=== PATIENT | female | born 1950 | race Caucasian/White ===

== ENCOUNTER → 2018-02-05 10:10 | Outpatient (POV) | payer BC, MEDICARE, SELFPAY | PROVIDERS: Family Provider Internal Medicine Adolescent Medicine; Visit Provider Physician Assistant | DX: Z00.00 Encounter for general adult medical examination without abnormal findings (principal) ==

== ENCOUNTER → 2019-07-26 08:42 | Outpatient (CLI) | payer BC, MEDICARE, SELFPAY ==
[2019-07-26 17:18] LABS: Hemoglobin A1C 7.2 % (0.0-7.0)
== END ==
PROVIDERS: Visit Provider Internal Medicine Adolescent Medicine
DX: R73.9 Hyperglycemia, unspecified (principal)
CPT/HCPCS: 36415; 83036

== ENCOUNTER 2019-10-07 14:30 | Outpatient (RCR) | payer BC, MEDICARE, SELFPAY ==
--- NOTE | 2019-09-12 16:59 | HMH.PTOPEV ---
PT Outpatient Evaluation Rehab PT Outpatient Evaluation Start: 09/12/19 14:56 Freq: Status: Active Protocol: Document 09/12/19 15:47 [email or web address] (Rec: 09/12/19 16:59 [email or web address] [id number]) Electronically Signed By Trino Gao, SAL 09/12/19 15:47 Outpatient Therapy Subjective History Subjective History Pt. is a 69 year old female who presents to Outpatient PT clinic with reports of subacute and activity dependent L thoracic P! of insidious onset 3 months ago. Pt. reports worsening of symptoms during ambulation/ standing for long periods of time, and sitting down/ bending down touching toes provide symptom relief. Pt. reports similar symptoms in fall of 2018 that relieved on their own. Pt. denies having injections and diagnostic imaging for current pathology. Current medications include a muscle relaxer(pt. unable to recall name at this time), Metformin, Lisinopril, Levothyroxine, Carvedilol, and Rosuvastatin. PMH includes HTN, Hypercholesterolemia, and Type II diabetes. Chief Complaint Pain Symptom Type Ache Symptoms Relieved By Rest/Positioning,Brace/Support Symptoms Aggravated By Standing,Physical Activity, Walking Prior Functional Limitations None Current Functional Limitations Housework,Standing,Walking Symptom Description Activity Dependent Level of pain today (0-10) 0 Pain scale - at its best (0-10) 0 Pain scale - at its worst (0-10) 10 Shoulder/Elbow Eval Shoulder Objective Measurements Palpation Tenderness Shoulder Palpation Overall Comment grade 2 +TTP to L low trap/ rhomboid major Posture Shoulder Posture Sitting Position (L) Rounded,(R) Rounded Shoulder Posture Standing Position (L) Rounded,(R) Rounded Flexibilty Deficits Latissmus Dorsi Muscle Length (R) Moderate Tightness,(L) Moderate Tightness Pectoralis Minor Muscle Length (R) Moderate Tightness,(L) Moderate Tightness Shoulder ROM Bilateral full ROM shoulder exam standard bilateral Shoulder MMT Left Lower Trapezius Strength Grade
== END 2019-10-14 13:41 | disposition home or self-care (01) ==
LOC: PT.CARL 14:30
PROVIDERS: PCP Internal Medicine Adolescent Medicine; Visit Provider Internal Medicine Adolescent Medicine
DX: S39.012A Strain of muscle, fascia and tendon of lower back, initial encounter (principal)
CPT/HCPCS: 97033; 97110; 97140; 97163

== ENCOUNTER → 2021-05-25 09:45 | Outpatient (CLI) | payer BC, MEDICARE, SELFPAY ==
[2021-05-26 09:15] LABS: Basophils % 0.6 % (0.1-2.0); Eosinophils # 0.1 K/mm3 (0.0-0.4); Eosinophils % 1.6 % (0.1-12.0); Hematocrit 46.9 % (37.0-47.0); Lymphocytes % 17.7 % (10-50); Mean Corpuscular HGB Conc 31.9 g/dL (31.8-35.4); Mean Corpuscular Hemoglobin 31.3 pg (27.0-31.2); Mean Corpuscular Volume 98.2 fl (81-99); Mean Platelet Volume 9.9 fl (7.4-10.4); Monocytes # 0.2 K/mm3 (0.1-1.0); Monocytes % 3.7 % (1.7-9.3); Neutrophils # 4.2 K/mm3 (1.8-7.8); Neutrophils % 76.3 % (37.0-80.0); Platelet Count 263 K/mm3 (142-424); Red Blood Count 4.78 M/mm3 (4.20-5.40); Red Cell Distribution Width 12.9 % (11.5-17.5); White Blood Count 5.6 K/mm3 (4.8-10.8)
[2021-05-26 10:05] LABS: Hemoglobin A1C 4.9 % (4.0-6.0)
[2021-05-26 10:12] LABS: Chloride 104 mmol/L (98-107)
[2021-05-26 10:13] LABS: Potassium 4.7 mmoL/L (3.5-5.1); Sodium 141 mmol/L (136-145)
[2021-05-26 10:15] LABS: Alanine Aminotransferase 25 U/L (12-78); Alkaline Phosphatase 90 U/L (38-126); Anion Gap 16.7 mEq/L (5-15); Aspartate Amino Transferase 34 U/L (14-36); Bilirubin,Total 0.8 mg/dl (0.2-1.3); Blood Urea Nitrogen 16 mg/dl (7-17); Carbon Dioxide 25 mmol/L (22.0-30.0); Cholesterol 143 mg/dl (140-200); Estimated Glomerular Filt Rate 62 ml/min (>60); GFR (African American) 74 ML/MIN (>60); Triglycerides 111 mg/dl (30-150); VLDL Cholesterol 22 mg/dL (0-40)
[2021-05-26 10:16] LABS: Albumin Level 4.6 g/dl (3.5-5.0); Albumin/Globulin Ratio 1.4 (1.1-1.8); Calcium 9.6 mg/dl (8.4-10.2); Chol/HDL Ratio 3.3 (1-3.5); Globulin 3.2 g/dL (1.3-3.2); Glucose 114 mg/dl (74-100); HDL Cholesterol 43 mg/dl (40-60); Total Protein,Serum 7.8 g/dl (6.3-8.2)
[2021-05-26 10:27] LABS: Direct LDL Cholesterol 71.74 mg/dL (100-129)
[2021-05-26 10:47] LABS: Thyroid Stimulating Hormone 1.64 uIU/mL (0.465-4.68)
== END ==
PROVIDERS: Visit Provider Internal Medicine Adolescent Medicine
DX: E11.9 Type 2 diabetes mellitus without complications (principal); E03.9 Hypothyroidism, unspecified
CPT/HCPCS: 80053; 80061; 83036; 84443; 85025

== ENCOUNTER → 2021-12-02 06:00 | Outpatient (CLI) | payer BC, MEDICARE, SELFPAY ==
[2021-12-02 14:20] LABS: Alanine Aminotransferase 30 U/L (12-78); Albumin Level 4.5 g/dl (3.5-5.0); Albumin/Globulin Ratio 1.7 (1.1-1.8); Alkaline Phosphatase 74 U/L (38-126); Anion Gap 12.4 mEq/L (5-15); Aspartate Amino Transferase 35 U/L (14-36); Bilirubin,Total 0.7 mg/dl (0.2-1.3); Blood Urea Nitrogen 21 mg/dl (7-17); Calcium 9.6 mg/dl (8.4-10.2); Carbon Dioxide 26 mmol/L (22.0-30.0); Chloride 104 mmol/L (98-107); Cholesterol 126 mg/dl (140-200); Estimated Glomerular Filt Rate 54 ml/min (>60); GFR (African American) 66 ML/MIN (>60); Globulin 2.7 g/dL (1.3-3.2); Glucose 107 mg/dl (74-100); HDL Cholesterol 42 mg/dl (40-60); Potassium 4.4 mmoL/L (3.5-5.1); Sodium 138 mmol/L (136-145); Total Protein,Serum 7.2 g/dl (6.3-8.2); Triglycerides 95 mg/dl (30-150); VLDL Cholesterol 19 mg/dL (0-40)
[2021-12-02 14:32] LABS: Basophils # 0.1 K/mm3 (0-0.2); Basophils % 1.5 % (0.1-2.0); Direct LDL Cholesterol 54.61 mg/dL (100-129); Eosinophils # 0.1 K/mm3 (0.0-0.4); Eosinophils % 1.9 % (0.1-12.0); Hematocrit 41.4 % (37.0-47.0); Hemoglobin 13.9 g/dL (12.2-16.2); Lymphocytes # 1.2 K/mm3 (0.7-4.5); Lymphocytes % 22.9 % (10-50); Mean Corpuscular HGB Conc 33.7 g/dL (31.8-35.4); Mean Corpuscular Hemoglobin 31.6 pg (27.0-31.2); Mean Corpuscular Volume 93.9 fl (81-99); Mean Platelet Volume 10.7 fl (7.4-10.4); Monocytes # 0.3 K/mm3 (0.1-1.0); Monocytes % 6.1 % (1.7-9.3); Neutrophils # 3.5 K/mm3 (1.8-7.8); Neutrophils % 67.5 % (37.0-80.0); Platelet Count 278 K/mm3 (142-424); Red Blood Count 4.41 M/mm3 (4.20-5.40); Red Cell Distribution Width 13.1 % (11.5-17.5); White Blood Count 5.2 K/mm3 (4.8-10.8)
[2021-12-02 14:51] LABS: Thyroid Stimulating Hormone 3.38 uIU/mL (0.465-4.68)
[2021-12-02 15:24] LABS: Hemoglobin A1C 5.1 % (4.0-6.0)
== END ==
PROVIDERS: Visit Provider Internal Medicine Adolescent Medicine
DX: E03.9 Hypothyroidism, unspecified (principal); E78.2 Mixed hyperlipidemia; E11.9 Type 2 diabetes mellitus without complications
CPT/HCPCS: 36415; 80053; 80061; 83036; 84443; 85025

== ENCOUNTER 2024-07-07 09:31 | Emergency (ER) | payer MEDICARE, SELFPAY ==
--- NOTE | 2024-07-07 10:41 | EXP.UTC ---
Discharge Plan Disposition Patient Disposition: Home, Self-Care Condition: Good Prescriptions Prescriptions: New azithromycin [Zithromax] 250 mg tablet 250 mg PO UD DOSE PK Qty: 6 0RF Rx Instructions: Take two (2) tablets today, then one (1) tablet days #2 thru #5 benzonatate 100 mg capsule 100 mg PO TIDP PRN (Reason: Cough) Qty: 30 0RF methylprednisolone 4 mg Tablets,Dose Pack 4 mg PO DIRECTED 6 Days Qty: 21 0RF Rx Instructions: Take 1 pack as directed for 6 days No Action atorvastatin 20 mg tablet 20 mg PO DAILY Patient Comments: TAKE 1 TABLET BY MOUTH EVERY DAY FOR 90 DAYS amlodipine 10 mg tablet 10 mg PO DAILY Patient Comments: TAKE 1 TABLET BY MOUTH EVERY DAY FOR 90 DAYS lisinopril-hydrochlorothiazide 1 EACH tablet 1 tab PO DAILY Patient Comments: TAKE 1 TABLET BY MOUTH EVERY DAY levothyroxine 75 MCG tablet 75 mcg PO DAILY Referrals Follow up/Referrals: Yaniv Murrieta MD [Primary Care Provider] - See instructions Activity Restrictions/Add. Instructions Additional Instructions/Restrictions: Drink plenty of fluids. Take tylenol or ibuprofen for pain or fever. Take the medications as directed. Follow up with your regular doctor. GO TO THE ER FOR ANY WORSENING SYMPTOMS Clinical Impressions Clinical Impression: Bronchitis, Acute viral syndrome Stand Alone Forms Stand Alone Forms: Work/School Release Instructions Patient Instructions: DI for Viral Syndrome Print Language Print Language: Czech Discharge ED Provider: Luis Mancia [facility] [place] HPI General Stated complaint: cough, weakness Time Seen by Provider: 07/07/24 10:41 Related Data Home Medications ?Medication ?Instructions ?Recorded ?Confirmed levothyroxine 75 mcg tablet 75 mcg PO DAILY THYROID 04/19/18 07/07/24 lisinopril 20 1 tab PO DAILY HTN 04/19/18 07/07/24 mg-hydrochlorothiazide 12.5 mg tablet amlodipine 10 mg tablet 10 mg PO DAILY 07/07/24 07/07/24 atorvastatin 20 mg tablet 20 mg PO DAILY 07/07/24 07/07/24 Previous Rx's ?Medication ?Instructions ?Recorded azithromycin 250 mg tablet 250 mg PO UD DOSE PK #6 tabs 07/07/24 (Zithromax) benzonatate 100 mg capsule 100 mg PO TIDP PRN Cough #30 caps 07/07/24 methylprednisolone 4 mg tablets in 4 mg PO DIRECTED 6 days #21 tabs 07/07/24 a dose pack Allergies Allergy/AdvReac Type Severity Reaction Status Date / Time Penicillins Allergy Verified 04/19/18 07:35 [facility] Disclaimer: The information contained in this section may have been updated after the patient was seen, as this information can be updated by other users. Medical History (Updated 07/07/24 @ 11:15 by Luis Mancia APRN) Hyperlipemia Hypertension Social History Smoking Status: Never smoker alcohol intake: never current occupational status: retired Travel in the last 8 weeks: None ROS Obtained: Yes All systems reviewed & no additional complaints except as documented Constitutional Constitutional: Reports chills and Reports fever(s) Eyes Eyes: Denies eye discharge ENT Ears, Nose, Mouth, and Throat: Reports as per HPI Cardiovascular Cardiovascular: Denies chest pain Respiratory Respiratory: Denies chest congestion and Reports cough Gastrointestinal Gastrointestingal: Reports nausea; Denies abdominal pain, constipation, cramping, diarrhea or vomiting Musculoskeletal Musculoskeletal: Denies arthralgias Integumentary/Breasts Skin/Breast: Denies rash Neurologic Neurologic: Denies paresthesias Physical Exam General General appearance: alert and in no apparent distress Head Head exam: atraumatic, normocephalic and normal inspection Eye Eye exam: Present normal appearance, PERRL and EOMI ENT ENT exam: Present normal exam, normal oropharynx, mucous membranes moist, TM's normal bilaterally and normal external ear exam Neck Neck exam: Present normal inspection, full ROM and trachea midline; Absent meningismus or lymphadenopathy Chest Chest inspection: Present normal inspection and symmetric chest wall rise; Absent tenderness Respiratory Respiratory exam: Present normal lung sounds bilaterally; Absent respiratory distress Cardiovascular Cardiovascular exam: Present regular rate and normal rhythm; Absent JVD Abdominal Exam Abdominal exam: Present soft and normal bowel sounds; Absent distention, tenderness or guarding Extremities Exam Extremities exam: Present normal inspection, full ROM and normal capillary refill; Absent calf tenderness Back Exam Back exam: Present normal inspection; Absent tenderness Neurological Exam Neurological exam: Present alert and oriented X3 Psychiatric Psychiatric exam: Present normal affect and normal mood Skin Skin exam: Present warm, dry, intact and normal color Lymphatic Lymphatic Findings: no adenopathy Medical Decision Making Medical Records Medical records reviewed: No I reviewed the patient's medical records. Screening: Per USPSTF and CDC recommendations, given the prevalence of disease in our region, it is our hospital?s policy to screen for HIV and viral Hepatitis for all patients aged 18 and over and those with ongoing risk factors. Juan Inquiry Pt receiving controlled substance: No Lab Data Lab results reviewed: Yes I reviewed the patient's lab results.
[2024-07-07 10:42] VITALS: BP 144/55; PULSE 90; RESP 18; TEMP 37.2; O2SAT 94; BMI 25.8
[2024-07-07 10:57] LABS: UTC Influenza A Antigen Negative (Negative); UTC Influenza B Antigen Negative (Negative)
[2024-07-07 11:20] VITALS: BP 144/55; PULSE 90; RESP 18; TEMP 37.2
== END 2024-07-07 11:24 | disposition home or self-care (01) ==
PROVIDERS: Emergency Provider Nurse Practitioner Family; PCP Internal Medicine Adolescent Medicine
DX: J20.9 Acute bronchitis, unspecified (principal); B34.9 Viral infection, unspecified; R50.9 Fever, unspecified; R05.9 Cough, unspecified; R11.0 Nausea
CPT/HCPCS: 87804; 99212; G0381

== ENCOUNTER 2024-11-19 16:00 | Outpatient (RCR) | payer MEDICARE, SELFPAY ==
--- NOTE | 2024-11-12 16:01 | HMH.PTOPEV ---
PT Outpatient Evaluation Rehab PT Outpatient Evaluation Start: 11/12/24 14:51 Freq: Status: Active Protocol: Document 11/12/24 14:51 MT (Rec: 11/12/24 16:01 [email or web address] [id number]) E-signed By Trino Gao, PT Outpatient Therapy Subjective History Subjective History Pt. is a 74 year old female who presents to [facility] in [place] for the outpatient initial evaluation this date( 11/12/24) w/ c/o chronic and intermittent RUE shldr. P!, edema, and weakness of insidious onset 3 to 4 months ago. Pt. denies trauma nor a fall as RYANN to symptom onset. Pt. denies having any recent diagnostic imaging for current complaint. Pt. denies having any symptom relief w/ recent cortisone injection. Pt. reports maybe some symptom relief regarding ice and OTC Tylenol. Pt. reports rest provides pt. w/ complete symptom relief. Pt. reports symptoms will worsen when I use it. Pt. reports having P! w/ reaching out, up, or use it. Pt. also c/o P! 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 Pt. reports she will wake up at night secondary to having P! when she rolls onto her RUE shldr. Pt. denies numbness/tingling into the RUE hand/digit, denies neck P!. Current medications include Lisinopril, Levothyroxine, Atorvastatin, Carvedilol, Amlodipine. PMH includes Hypertension and Hyperlipidemia. New diagnosis of cancer in past 12 No months? Chief Complaint Pain,Stiff,Clicks,Swelling, Gives out/Unstable,Weakness Symptom Type Ache,Sharp,Dull,Stabbing, Burning,Shooting Symptoms Relieved By Rest/Positioning,Ice,OTC Meds Symptoms Aggravated By Physical Activity,Twisting, Lifting Prior Functional Limitations None Current Functional Limitations Reaching,Lifting,Housework, Dressing,Desk Work/Reading, Driving,Sleeping Symptom Description Intermittent,Activity Dependent Level of pain today (0-10) 0 Pain scale - at its best (0-10) 0 Pain scale - at its worst (0-10) 8 Shoulder/Elbow Eval Shoulder Objective Measurements Palpation Tenderness tenderness shoulder exam standard right tenderness over the bicipital tendon right shoulder exam standard tenderness over the SA bursa shoulder right exam standard Shoulder Palpation Findings Tenderness Shoulder Palpation Overall Comment grade 3 +TTP swelling shoulder exam standard right Posture Shoulder Posture Sitting Position (R) Rounded,(R) Forward,(R) Elevated Shoulder Posture Standing Position (R) Rounded,(R) Forward,(R) Elevated Scapula Posture Sitting Position (R) Protracted Scapular Posture Standing Position (R) Protracted Flexibilty Deficits Latissmus Dorsi Muscle Length (R) Severe Tightness Pectoralis Minor Muscle Length (R) Severe Tightness Pectoralis Major Muscle Length (R) Severe Tightness Shoulder External Rotators Muscle Length (R) Severe Tightness Shoulder Internal Rotators Muscle Length (R) Severe Tightness Supraspinatus Muscle Length (R) Severe Tightness Teres Major Muscle Length (R) Severe Tightness Upper Trapezius Muscle Length (R) Severe Tightness Levaetor Scapulae Muscle Length (R) Severe Tightness Shoulder ROM Right Shoulder ROM Limitations Soft Tissue Tightness,Muscle Tone,Pain Shoulder Abduction Active Range of 57 Motion (degrees) Shoulder Abduction Passive Range of 69 Motion (degrees) Shoulder Flexion Active Range of Motion 72 (degrees) Query Text: Shoulder Flexion Passive Range of Motion 81 (degrees) Shoulder External Rotation Active Range 21 of Motion (degrees) Shoulder External Rotation Passive Range 29 of Motion (degrees) Shoulder Internal Rotation Active Range 13 of Motion (degrees) Shoulder Internal Rotation Passive Range 19 of Motion (degrees) Shoulder Extension Active Range of 41 Motion (degrees) Shoulder Extension Passive Range of 49 Motion (degrees) pain with active ROM shoulder exam right standard pain with passive ROM shoulder exam right standard decreased ROM shoulder exam standard right Shoulder MMT Shoulder Abduction Strength Grade 3 Fair Shoulder Extension Strength Grade 3 Fair Shoulder Flexion Strength Grade 3 Fair Shoulder External Rotation Strength 3 Fair Grade Shoulder Internal Rotation Strength 3 Fair Grade Shoulder Strength Patient Testing Sitting Position Shoulder Muscle Tone Shoulder Flexor Muscle Tone Description Severe Hypertonicity Shoulder Extensors Muscle Tone Severe Hypertonicity Description Shoulder Lateral Rotator Muscle Tone Severe Hypertonicity Description Shoulder Special Tests impingement sign present shoulder exam right standard Shoulder Drop Arm Test Positive Right Shoulder Cross-Over Impingement Test Positive Right Acromioclavicular Joint Compression Test Negative Right Shoulder Empty Can (Supraspinatus) Test Positive Right Shoulder Webber-Yovani Impingement Positive Right Test Elbow Objective Measurements Accessory Movements Right Shoulder Girdle Accessory Movements that Glenohumeral Ant [place], Elicit Symptoms Glenohumeral Supr [place] Outpatient Therapy Assessment Impairments Problems/Impairmments Palpation Tenderness,Impaired Range of Motion,Impaired Strength,Impaired Endurance, Impaired Driving,Impaired Lifting,Impaired Dressing, Impaired Shower/Bathing, Impaired Household Care, Impaired Work Activities, Impaired Desk/Computer Activities,Increased Edema, Subjective C/O Pain,Impaired Self Care/Self Management Prognosis Rehab Potential Good Comment w/ HEP compliancy Clinical Impression Consistent with Diagnosis Yes Consistent with RUE shldr. SA impingement syndrome Short Term Goals Number of Weeks 2 Decreased Palpation Tenderness Yes: grade 2 +TTP Decrease Subjective C/O Pain Yes: worse:11/30 Patient to be Ind w/ HEP Yes Rn School Goals Number of Weeks 4-6 Decreased Palpation Tenderness Yes: grade 1 +TTP Increase Range of Motion Yes: RUE shldr. A/PROM WFL/ symmetrical to LUE shldr. grossly Increase Strength Yes: 4+ to 5/5 RUE shldr. MMT scores grossly Increase Ability to Drive/Ride in Car Yes: Pt. will be able to reach the steering wheel w/o difficulty Restore Ability to Lift Objects Overhead Yes Improve Ability to Dress Self Yes: IND. w/o difficulty to return to iADLs Improve Ability to Shower/Bathe Self Yes: IND. w/o difficulty to return to iADLs Improve Ability For Household Care Yes: Pt. will be able to clean /wash tables w/o difficulty Improve Tolerance to Work Activities Yes: Pt. will be able to lift box of food w/o difficulty Improve Quick Dash Score Yes Decrease Subjective C/O Pain Yes: worse:-09/02 Improve Self Care/Self Management Yes: Pt. will return to sleep w/o waking secondary to comparable P! Patient to be Ind w/ Advanced HEP Yes Outpatient Therapy Plan of Care Treatment Plan May Include Therapeutic Exercise Including Home Yes Exercise Program Manual Therapy Techniques Yes Neuromuscular Re-education Yes Therapeutic Activities to Return to Yes Previous Functional/Work Level ADL/Self Care Education Yes Dry Needling Yes Thermal Modalities Yes Electrical Stimulation Yes Ultrasound/Phonophoresis Yes Iontophoresis Yes Vasopneumatic Compression Pump Yes Massage Yes Eval/Re-Eval Yes Frequency Times per week 2 Duration Number of Weeks 4-6 Addendums This patient is a candidate for social No or vocational rehab? Patient/Guardian verbally acknowledges Yes understanding of treatment program and consents to further treatment? Patient/Guardian verbally acknowledges Yes understanding of diagnosis, prognosis and goals for treatment? Eval Complexity PT Charges 84250 - Low Complexity PHYSICIAN CERTIFICATION: I certify the specified therapy services for Juanis [place] are required, authorized, and reviewed every 30 days.
== END 2024-11-19 23:59 | disposition home or self-care (01) ==
LOC: PT 16:00
PROVIDERS: PCP Internal Medicine Adolescent Medicine; Visit Provider Internal Medicine Adolescent Medicine
DX: M75.41 Impingement syndrome of right shoulder (principal)
CPT/HCPCS: 97014; 97035; 97110; 97163; G0283

== ENCOUNTER 2024-12-10 16:00 | Outpatient (RCR) | payer MEDICARE, SELFPAY | END 2024-12-10 23:59 | disposition home or self-care (01) | LOC: PT 16:00 | PROVIDERS: PCP Internal Medicine Adolescent Medicine; Visit Provider Internal Medicine Adolescent Medicine | DX: M75.41 Impingement syndrome of right shoulder (principal) | CPT/HCPCS: 97014; 97035; 97110; G0283 ==

== ENCOUNTER 2025-04-19 11:02 | Outpatient (CLI) | payer MEDICARE, SELFPAY ==
--- NOTE | 2025-04-19 | XR_ITS ---
PROCEDURE INFORMATION: Exam: XR Chest Exam date and time: 04/19/2025 11:10 AM Age: 74 years old Clinical indication: Cough; Additional info: Subacute cough TECHNIQUE: Imaging protocol: Radiologic exam of the chest. Views: 2 views. Total images: 2 COMPARISON: No relevant prior studies available. FINDINGS: Lungs: Atelectatic and/or early infiltrative changes noted within the left lower lobe. Bilateral hyperinflation is present. Mild interstitial prominence bilaterally. Pleural spaces: No pleural effusion. No pneumothorax. Heart/Mediastinum: The heart is not enlarged. Vasculature: Mild atherosclerotic disease. Bones/joints: Rightward curvature of the thoracic spine with mild degenerative changes. IMPRESSION: 1. Atelectatic and/or early infiltrative changes noted within the left lower lobe. 2. Bilateral hyperinflation is present. 3. Mild interstitial prominence bilaterally.
[2025-04-19 12:13] LABS: Hematocrit 36.6 % (37.0-47.0); Hemoglobin 12.7 g/dL (12.2-16.2); Immature Granulocytes % 0.4 %; Mean Corpuscular HGB Conc 34.7 g/dL (31.8-35.4); Mean Corpuscular Hemoglobin 30.2 pg (27.0-31.2); Mean Corpuscular Volume 86.9 fl (81-99); Nucleated Red Blood Cells % 0 %; Platelet Count 280 K/mm3 (142-424); Red Blood Count 4.21 M/mm3 (4.20-5.40); Red Cell Distribution Width-SD 40.1 fL; White Blood Count 9.4 K/mm3 (4.8-10.8)
[2025-04-19 13:09] LABS: Albumin Level 4.8 g/dl (3.5-5.0); Chloride 95 mmol/L (98-107); Potassium 5.1 mmoL/L (3.5-5.1); Sodium 134 mmol/L (136-145)
[2025-04-19 13:12] LABS: Alanine Aminotransferase 16 U/L (12-78); Albumin/Globulin Ratio 1.6 (1.1-1.8); Alkaline Phosphatase 70 U/L (38-126); Anion Gap 17.1 mEq/L (5-15); Aspartate Amino Transferase 28 U/L (14-36); Bilirubin,Total 1.1 mg/dl (0.2-1.3); Calcium 9.9 mg/dl (8.4-10.2); Carbon Dioxide 27 mmol/L (22.0-30.0); Globulin 3.0 g/dL (1.3-3.2); Glucose 130 mg/dl (74-100); Phosphorous 4.5 mg/dl (2.5-4.5); Total Protein,Serum 7.8 g/dl (6.3-8.2)
[2025-04-19 13:13] LABS: Magnesium 2.1 mg/dl (1.6-2.3)
[2025-04-19 13:24] LABS: Blood Urea Nitrogen 27 mg/dl (7-17); Creatinine,Serum 1.40 mg/dl (0.52-1.04); Estimated Glomerular Filt Rate 37 ml/min (>60); GFR (African American) 44 ML/MIN (>60)
[2025-04-19 13:29] LABS: Triiodothryronine (T3) Uptake 33 % (23.5-40.5)
[2025-04-19 13:30] LABS: Free Thyroxine Index 4.2 ug/dL (5.93-13.13); T4 (Thyroxine) 12.6 ug/dl (5.53-11.0)
[2025-04-19 13:44] LABS: Thyroid Stimulating Hormone 3.48 uIU/mL (0.465-4.68)
== END 2025-04-19 23:59 | disposition home or self-care (01) ==
LOC: RAD 11:03
PROVIDERS: PCP Internal Medicine Adolescent Medicine; Visit Provider Internal Medicine Adolescent Medicine
DX: J98.11 Atelectasis (principal); R91.8 Other nonspecific abnormal finding of lung field; J84.89 Other specified interstitial pulmonary diseases; J98.4 Other disorders of lung
CPT/HCPCS: 36415; 71046; 80053; 83735; 84100; 84436; 84443; 84479; 85025

== ENCOUNTER 2025-04-19 11:27 | Outpatient (CLI) | payer MEDICARE, SELFPAY | END 2025-04-19 23:59 | disposition home or self-care (01) | LOC: LAB 11:28 | PROVIDERS: PCP Internal Medicine Adolescent Medicine; Visit Provider Internal Medicine Adolescent Medicine | DX: R05.2 Subacute cough (principal); R42 Dizziness and giddiness; R55 Syncope and collapse ==